=== PATIENT | male | born 1980 | race Caucasian/White ===

== ENCOUNTER 2017-04-19 14:07 | Day surgery (SDC) | payer OTHER ==
[~2017-04-19] VITALS: Ht 170.2 cm; Wt 79.8 kg
[2017-04-19] MEDS ORDERED: CELEBREX 1100 MG/CAP PO (14:15)
[2017-04-19] MEDS ORDERED: VOLTAREN GEL 1%1 TU TP (14:15)
[2017-04-19] MEDS ORDERED: ROBAXIN 50500 MG/TAB PO (14:15)
[2017-04-19] MEDS ORDERED: PRILOSEC 20MG20 MG PO (14:16)
[2017-04-19 14:17] VITALS: BP 143/83; PULSE 52; TEMP 97.5
[2017-04-19 15:15] VITALS: BP 103/74; PULSE 63; TEMP 97.7
[2017-04-19 15:45] VITALS: BP 114/69; PULSE 68
[2017-04-19 15:50] VITALS: BP 105/61; PULSE 66
== END 2017-04-19 16:02 | disposition home or self-care (01) ==
LOC: SDCO 14:07
DX: K21.9 Gastro-esophageal reflux disease without esophagitis (principal); K25.9 Gastric ulcer, unspecified as acute or chronic, without hemorrhage or perforation; I10 Essential (primary) hypertension; K30 Functional dyspepsia; R19.7 Diarrhea, unspecified; R19.4 Change in bowel habit; R10.84 Generalized abdominal pain; Z87.891 Personal history of nicotine dependence
CPT/HCPCS: J2250; J2405; J3010; J7030